=== PATIENT | female | born 1995 | race Caucasian/White ===

== ENCOUNTER → 2025-06-02 | Outpatient (CLI) | payer OTHER, BC ==
[2025-06-02 13:44] LABS: PLATELET COUNT, AUTOMATED 185 10^3/uL (150-450)
[2025-06-02 13:46] LABS: GLUCOSE CHALLENGE TEST 1 HOUR 82 MG/DL (LESS THAN 140)
[2025-06-02 14:15] LABS: HIV 1&2 SCREEN NEGATIVE (NEGATIVE)
[2025-06-02 14:23] LABS: HEPATITIS C VIRUS ABY INDEX 0.09 INDEX (<0.8)
[2025-06-02 14:42] LABS: Trichomonas vaginalis (AMP) NOT DETECTED (NEGATIVE)
[2025-06-02 15:07] LABS: GC DNA AMPLIFICATION NEGATIVE (NEGATIVE)
== END ==
LOC: M PLALAB 09:35
PROVIDERS: ATTEND Nurse Practitioner Family
DX: Z34.80 Encounter for supervision of other normal pregnancy, unspecified trimester (principal)

== ENCOUNTER → 2025-08-10 | Outpatient (REF) | payer BC, OTHER ==
[~2025-08-10] MED LIST: ACET-907 PO; PRENTAB9 PO; TUMS500C PO
== END ==
LOC: M SFHCWAGY 14:45
PROVIDERS: ATTEND Specialist
DX: Z36.85 Encounter for antenatal screening for Streptococcus B (principal); Z3A.36 36 weeks gestation of pregnancy

== ENCOUNTER 2025-09-03 20:01 | Inpatient (IN) | payer BC, OTHER ==
[~2025-09-03] VITALS: Ht 172.7 cm; Wt 89.3 kg
[2025-09-03 20:15] VITALS: BP 114/72
[2025-09-03] MEDS ORDERED: TUMS500C PO (20:24)
[2025-09-03] MEDS ORDERED: ACET-907 PO (20:24)
[2025-09-03] MEDS ORDERED: PRENTAB9 PO (20:24)
[2025-09-03] MEDS ORDERED: HOME MED LIST COMPLETE! XX SCH (20:25)
[2025-09-03] MEDS ORDERED: LIDOCAINE 1% MDV 20 ML VIAL INFIL PRN (20:50)
[2025-09-03] MEDS ORDERED: OXYTOCIN DRIP 30 UNITS in IV 1 EA IV PRN (20:50)
[2025-09-03 21:24] LABS: PLATELET COUNT, AUTOMATED 199 10^3/uL (150-450)
[2025-09-03 22:11] LABS: HIV 1&2 SCREEN NEGATIVE (NEGATIVE)
[2025-09-03 22:19] LABS: HEPATITIS C VIRUS ABY INDEX < 0.02 INDEX (<0.8)
[2025-09-03 22:33] VITALS: BP 121/72
[2025-09-03 23:52] VITALS: BP 117/56
[2025-09-04] VITALS (61 sets, daily range): BP systolic 86–134; BP diastolic 51–83; O2SAT 96
[2025-09-04] MEDS ORDERED: NALOXONE INJ 0.4 MG/1 ML VIAL IV PRN (01:20)
[2025-09-04] MEDS ORDERED: EPIDURAL/PCA KEYS XX PRN (01:20)
[2025-09-04] MEDS ORDERED: diphenhydrAMINE 50 MG/ML VIAL IV PRN (01:20)
[2025-09-04] MEDS: FENTANYL/ROPIVACAINE/NACL BAG 100 ML EPIDURAL SCH (01:26)
[2025-09-04] MEDS: ONDANSETRON 4MG 2ML VIAL IV PRN (02:16)
[2025-09-04] MEDS: LR 1,000 ML IV SCH (02:16)
[2025-09-04] MEDS: OXYTOCIN DRIP 30 UNITS in IV 1 EA IV SCH (02:16)
[2025-09-04] MEDS: LR 500 ML IV PRN (02:20)
[2025-09-04] MEDS ORDERED: ONDANSETRON 4MG 2ML VIAL IV ONE (12:00)
[2025-09-04] MEDS ORDERED: METHYLERGONOVINE MALEATE 0.2 MG TAB PO PRN (17:55)
[2025-09-04] MEDS ORDERED: CALCIUM CARBONATE 500 MG CHEW U/D PO PRN (17:55)
[2025-09-04] MEDS ORDERED: ACETAMINOPHEN 325 MG TAB PO PRN (17:55)
[2025-09-04] MEDS ORDERED: RHOGAM 300MCG (1500IU) INJ IM SCH (17:55)
[2025-09-04] MEDS ORDERED: IBUPROFEN 600 MG TAB PO PRN (17:55)
[2025-09-04] MEDS: IBUPROFEN 800 MG TAB PO PRN (19:00)
[2025-09-04] MEDS: ACETAMINOPHEN 500 MG TAB PO PRN (20:33)
[2025-09-05 05:59] VITALS: BP 113/73; O2SAT 97
[2025-09-05] MEDS: DIBUCAINE 1% OINTMENT 30 GM TOP PRN (07:55)
[2025-09-05] MEDS: DOCUSATE SODIUM 100 MG CAPSULE PO PRN (07:55)
[2025-09-05] MEDS: PRENATAL VITAMINS CHEWABLE TABLET PO SCH (07:55)
[2025-09-05] MEDS: ANUSOL HC CREAM 30 GM TOP PRN (07:55)
[2025-09-05 08:42] VITALS: BP 113/73; TEMP 97; O2SAT 97
[2025-09-05 10:14] LABS: PLATELET COUNT, AUTOMATED 165 10^3/uL (150-450)
[2025-09-05] MEDS: MOM 30 ML SUSPENSION UDC PO PRN (16:05)
[2025-09-05 18:00] VITALS: BP 118/76; O2SAT 99
[2025-09-06 06:00] VITALS: BP 120/72; O2SAT 97
[2025-09-06] MEDS ORDERED: MEASLES,MUMPS,RUBELLA VACCINE INJ (MMR-II) SC.IMMUN ONE (09:00)
[2025-09-06] MEDS: FLUZONE VACCINE TRI PF(25-26) 0.5ML SYRINGE IM.IMMUN ONE (11:52)
== END 2025-09-06 12:50 | disposition home or self-care (01) | DRG 560 ==
LOC: M LDO 20:01 → M LDI 20:40 → M OBS 09-04 20:15
PROVIDERS: ADMIT Specialist; ATTEND Specialist
PROC: 10E0XZZ Delivery of Products of Conception, External Approach (ICD-10-PCS; principal; 2025-09-04)
PROC: 0KQM0ZZ Repair Perineum Muscle, Open Approach (ICD-10-PCS; 2025-09-04)
PROC: 10907ZC Drainage of Amniotic Fluid, Therapeutic from Products of Conception, Via Natural or Artificial Opening (ICD-10-PCS; 2025-09-04)
DX: O70.1 Second degree perineal laceration during delivery (principal); Z37.0 Single live birth; Z3A.39 39 weeks gestation of pregnancy